=== PATIENT | male | born 1990 | race Caucasian/White ===

== ENCOUNTER 2017-06-12 16:36 | Emergency (ER) | payer OTHER ==
[~2017-06-12] VITALS: Ht 180.3 cm; Wt 60.9 kg
[2017-06-12 16:37] VITALS: BP 148/80
[2017-06-12] MEDS ORDERED: TRAZ-144 PO (16:43)
[2017-06-12] MEDS ORDERED: FLUO-126 PO (16:43)
[2017-06-12] MEDS ORDERED: BUTA1CAP53 PO (16:43)
[2017-06-12] MEDS ORDERED: BUPR150T8 PO (16:43)
== END 2017-06-12 17:20 | disposition left against medical advice (07) ==
LOC: EMS 16:37
DX: Z53.21 Procedure and treatment not carried out due to patient leaving prior to being seen by health care provider (principal)

== ENCOUNTER 2025-05-10 22:38 | Emergency (ER) | payer MEDICAID, OTHER ==
[~2025-05-10] VITALS: Ht 177.8 cm; Wt 70.5 kg
[~2025-05-10 22:38] MED LIST: BUPR-113 PO; BUTA1CAP53 PO; FLUO-418 PO; TRAZ-252 PO
[2025-05-10 22:47] VITALS: BP 121/70; PULSE 60; RESP 18; TEMP 96.6; O2SAT 100
== END 2025-05-11 00:13 | disposition home or self-care (01) ==
LOC: EMS 22:38
DX: G43.909 Migraine, unspecified, not intractable, without status migrainosus (principal); F41.9 Anxiety disorder, unspecified; I10 Essential (primary) hypertension; Z87.820 Personal history of traumatic brain injury; Z79.899 Other long term (current) drug therapy
CPT/HCPCS: 99282; Z7502